=== PATIENT | female | born 1995 | race Caucasian/White ===

== ENCOUNTER 2017-08-21 20:43 | Emergency (ER) | payer OTHER ==
--- NOTE | 2017-08-21 21:01 | EDM.PDOC ---
ED HPI GENERAL MEDICAL PROBLEM - General Chief Complaint: Neurological Problem Stated Complaint: DIZZY Time Seen by Provider: 08/21/17 21:01 Source of Information: Reports: Patient History Limitations: Reports: No Limitations - History of Present Illness INITIAL COMMENTS - FREE TEXT/NARRATIVE: 21-year-old female presents to the ED with complaint of dizziness. From what I can elicit she is experiencing mild vertigo. Started last night about 6:00. No associated headache. Associated mild nausea without any vomiting. This is predated by an upper spine Avila tract which she claims a sinus infection about 3 weeks ago. Not appreciating increased calming ringing or buzzing in either ear. Last period was about 2 weeks ago and was not all that heavy. She has not fallen or hit her head. She is currently on spring. Denies any true facial pain or eye pain. She feels she did eat and drink fairly well today. I did appreciate the symptoms worse with driving in a motor vehicle. Onset: Sudden Onset Date: 08/20/17 Onset Time: 18:00 Duration: Hour(s): Location: Reports: Other Quality: Reports: Other (Vertigo) Severity: Moderate Improves with: Reports: Rest Worsens with: Reports: Movement Context: Denies: Activity, Exercise, Lifting, Sick Contact, Trauma, Other Associated Symptoms: Reports: Nausea/Vomiting. Denies: No Other Symptoms, Confusion, Chest Pain, Cough, cough w sputum, Diaphoresis, Fever/Chills, Headaches, Loss of Appetite, Malaise, Rash, Seizure, Shortness of Breath, Syncope Treatments INTEGRATION CONSULTANT: Reports: Other (see below) - Related Data Allergies Allergy/AdvReac Type Severity Reaction Status Date / Time No Known Allergies Allergy Verified 08/21/17 20:56 Home Meds: Home Meds Amoxicillin/Clavulanate K [Augmentin 500-125 MG] 1 tab PO Q12H #16 tablet [Rx] Loratadine/Pseudoephedrine [Claritin-D 24 Hour Tablet] 1 each PO DAILY #5 tab.er.24h 08/21/17 [Rx] Meclizine [Antivert] 25 mg PO Q8H #15 tab 08/21/17 [Rx] Past Medical History Musculoskeletal History: Reports: Other (See Below) Other Musculoskeletal History: sciolosis - Past Surgical History HEENT Surgical History: Reports: Oral Surgery, Tonsillectomy Social & Family History - Tobacco Use Smoking Status *Q: Never Smoker - Caffeine Use Caffeine Use: Reports: Coffee, Energy Drinks, Soda, Tea - Recreational Drug Use Recreational Drug Use: No - Living Situation & Occupation Living situation: Reports: Single Occupation: Student ED ROS GENERAL - Review of Systems Review Of Systems: See Below Constitutional: Reports: Decreased Appetite (Mildly decreased). Denies: Fever, Chills, Malaise, Weakness, Fatigue, Weight Loss HEENT: Reports: Vertigo, Vision Change (RN last evening.). Denies: Ear Pain ( Feels vision was swimming at times.) Respiratory: Reports: No Symptoms Cardiovascular: Reports: No Symptoms Endocrine: Reports: No Symptoms GI/Abdominal: Reports: Nausea : Reports: No Symptoms (With no vomiting. It's associated with the vertigo symptoms) Musculoskeletal: Reports: No Symptoms Skin: Reports: No Symptoms Neurological: Reports: No Symptoms Psychiatric: Reports: No Symptoms Hematologic/Lymphatic: Reports: No Symptoms Immunologic: Reports: No Symptoms ED EXAM, DIZZINESS - Physical Exam Exam: See Below Exam Limited By: No Limitations General Appearance: Alert, WD/WN, No Apparent Distress, Other (Slightly pallid in color. But she has very fair skinned) Eye Exam: Bilateral Eye: Normal Inspection (Very slight pallor.) Nystagmus: short duration (On right lateral gaze.) Ears: TM Dullness (Into very retracted on the left side. This is compatible with severe eustachian tube dysfunction. Tympanic membrane is normal.) Nose: Other (She is very swollen particularly medial and superior turbinates on the left side with some purulent discharge. No pain on palpation of her maxillary or ethmoid sinuses.) Throat/Mouth: Normal Inspection, Normal Lips, Normal Teeth, Normal Oropharynx Head Exam: Atraumatic, Normocephalic Vertigo: worsens with head to L Neck: Normal Inspection, Supple, Non-Tender, Full Range of Motion. No: Lymphadenopathy (L), Lymphadenopathy (R) Respiratory/Chest: No Respiratory Distress, Lungs Clear, Normal Breath Sounds, No Accessory Muscle Use, Chest Non-Tender Cardiovascular: Normal Peripheral Pulses, Regular Rate, Rhythm, No Edema, No Murmur, No Rub GI/Abdominal: Normal Bowel Sounds, Soft, Non-Tender, No Organomegaly Neurological: Alert, Normal Mood/Affect, Normal Dorsiflexion, CN II-XII Intact, Oriented x 3, Other (Normal rapid alternating movements. Normal finger to nose no pronator drift.). No: Abnormal Finger to Nose Extremities: Normal Inspection, Normal Range of Motion, Non-Tender, No Pedal Edema Psychiatric: Normal Affect, Normal Mood Skin Exam: Warm, Dry, Intact, Normal Color, No Rash Course - Vital Signs Last Recorded V/S: Last Vital Signs Temp 36.9 C 08/21/17 20:55 Pulse 84 08/21/17 20:55 Resp 20 08/21/17 20:55 BP 125/73 08/21/17 20:55 Pulse Ox 100 08/21/17 20:55 Orthostatic Blood Pressure [ 120/69 Standing] Orthostatic Blood Pressure [ 132/91 Sitting] - Orders/Labs/Meds Orders: Active Orders 24 hr Category Date Time Status Orthostatic Vital Signs [RC] ASDIRECTED Care 08/21/17 21:00 Active Labs: Laboratory Tests 08/21/17 08/21/17 Range/Units 21:23 21:23 WBC 7.31 (3.98-10.04) K/mm3 RBC 4.54 (3.98-5.22) M/mm3 Hgb 12.8 (11.2-15.7) gm/L Hct 38.6 (34.1-44.9) % MCV 85.0 (79.4-94.8) fl MCH 28.2 (25.6-32.2) pg MCHC 33.2 (32.2-35.5) g/dl RDW Std Deviation 38.7 (36.4-46.3) fL Plt Count 238 (182-369) K/mm3 MPV 10.2 (9.4-12.3) fl Neutrophils % (Manual) 44 (40-60) % Band Neutrophils % 0 (0-10) % Lymphocytes % (Manual) 47 H (20-40) % Atypical Lymphs % 0 % Monocytes % (Manual) 5 (2-10) % Eosinophils % (Manual) 4 (0.7-5.8) % Basophils % (Manual) 0 L (0.1-1.2) Platelet Estimate Adequate RBC Morph Comment Normal Sodium 140 (136-145) mEq/L Potassium 3.5 (3.5-5.1) mEq/L Chloride 104 (98-107) mEq/L Carbon Dioxide 28 (21-32) mEq/L Anion Gap 11.5 (5-15) BUN 9 (7-18) mg/dL Creatinine 0.7 (0.55-1.02) mg/dL Est Cr Clr Drug Dosing 129.59 mL/min Estimated GFR (MDRD) > 60 (>60) mL/min BUN/Creatinine Ratio 12.9 L (14-18) Glucose 135 H (74-106) mg/dL Calcium 9.0 (8.5-10.1) mg/dL Total Bilirubin 0.5 (0.2-1.0) mg/dL AST 19 (15-37) U/L ALT 29 (14-59) U/L Alkaline Phosphatase 59 (46-116) U/L Total Protein 7.2 (6.4-8.2) g/dl Albumin 4.2 (3.4-5.0) g/dl Globulin 3.0 gm/dL Albumin/Globulin Ratio 1.4 (1-2) TSH 3rd Generation 1.081 (0.516-4.13) uIU/mL Meds: Medications Discontinued Medications Generic Name Dose Route Start Last Admin Trade Name Freq PRN Reason Stop Dose Admin Amoxicillin/Clavulanate Potassium 1 tab 08/22/17 22:37 Augmentin 500 Mg\125 Mg PO 08/22/17 22:38 ONETIME ONE Amoxicillin/Clavulanate Potassium 1 tab 08/21/17 22:49 08/21/17 22:55 Augmentin 500 Mg\125 Mg PO 08/21/17 22:50 1 tab ONETIME ONE Administration Dextrose/Sodium Chloride 1,000 mls @ 999 mls/hr 08/21/17 21:30 08/21/17 21:31 Dextrose 5%-Normal Saline IV 999 mls/hr ASDIRECTED JOSE Administration Meclizine HCl 25 mg 08/21/17 22:37 08/21/17 22:55 Antivert PO 08/21/17 22:38 25 mg ONETIME ONE Administration Metoclopramide HCl 7.5 mg 08/21/17 21:23 08/21/17 21:31 Reglan IVPUSH 08/21/17 21:24 7.5 mg ONETIME ONE Administration - Radiology Interpretation Free Text/Narrative:: 21-year-old female presents the ED with chief complaint of dizziness. On sorting this out this is mild vertigo. Clinically she has evidence of a severely retracted left tympanic membrane due to eustachian tube dysfunction. Had sinus infection about 3 weeks ago but thought she was getting better. The nose remains very occluded on the left side walking off the eustachian tube. She has very minimal nystagmus on right lateral gaze. The rest of her neuro exam is normal. Plan routine labs to be done. She is not orthostatic. She has a little pallid. Question whether she may be anemic. Plan IV D5 normal saline at open. Will give Reglan 7.5 mg IV and then 25 mg of meclizine and about 45 minutes to stabilize the balance mechanism overnight. Will likely require antibiotic therapy and decongestant. - Re-Assessments/Exams Free Text/Narrative Re-Assessment/Exam: 08/21/17: 22:00: Nausea is gone. Doesn't feel as dizzy and doesn't feel like her vision is a swimmy as it was. 08/21/17 22:35 Labs are back. White count is 7.31 with 44% neutrophils and 47% lymphocytes suggesting a viral infection. Hemoglobin is 12.8 platelet count is normal at 238,000. Chemistry shows low sodium at 140 with potassium low-normal at 3.5. Chloride 104 bicarbonate 20. Anion gap is normal 11.5 BUN is 9 with a creatinine of 0.7. Glucose is 135 calcium is 9.0 liver function normal. TSH is also normal at 1.081. Plan patient clinically has a eustachian tube dysfunction on the left side continuing to current vertigo symptoms. She is improved after receiving Reglan IV. I will not give her Antivert 25 mg orally to get her through the night. The plan will used to be to use Antivert 25 mg every 8 hours for the next few days I'm going to place her on Augmentin tablets 500 mg twice a day for the next 8 days to help clear up ear infection and sinus congestion. Also Claritin-D 24- hour release 1 tablet once daily every morning for the next 5 days. Departure - Departure Time of Disposition: 22:38 Disposition: Home, Self-Care 01 Condition: Fair Clinical Impression: Benign paroxysmal positional vertigo Qualifiers: Laterality: left Qualified Code(s): H81.12 - Benign paroxysmal vertigo, left ear Left serous otitis media Qualifiers: Chronicity: acute Recurrence: not specified as recurrent Qualified Code(s): H65.02 - Acute serous otitis media, left ear Eustachian tube dysfunction Qualifiers: Laterality: left Qualified Code(s): H69.82 - Other specified disorders of Eustachian tube, left ear - Discharge Information Prescriptions: Amoxicillin/Clavulanate K [Augmentin 500-125 MG] 1 tab PO Q12H #16 tablet Loratadine/Pseudoephedrine [Claritin-D 24 Hour Tablet] 1 each PO DAILY #5 tab.er.24h Meclizine [Antivert] 25 mg PO Q8H #15 tab Instructions: Eustachian Tube Dysfunction, Otitis Media, Adult, [id number], Benign Positional Vertigo Referrals: PCP,None [Primary Care Provider] - Forms: ED Department Discharge Additional Instructions: Evaluation the emergency room tonight in regards to reported symptoms of feeling dizzy with associated nausea. By history you're experiencing vertigo which is a sense of being off balance. This is occurred because of dysfunction of the left foot vestibular apparatus in the left middle ear. After eardrum was found to be severely retracted and fluid is inside the middle ear cavity contributing to current illness. Also the left side of her nose is completely occluded blocking off the eustachian tube that drains the left ear again contributing to current problem. Lab work done in the ED today is normal. You' re treated with Reglan intravenously to try and stabilize the balance mechanism. You're also given meclizine 25 mg orally before time of discharge. Treatment is Augmentin 500 mg twice daily for the next 8 days to clear up infection. This is involving the middle ear cavity as well as the sinuses on the left side. PT is Claritin-D 24 hours once daily every morning for the next 5 days to help open up the eustachian tube and promote drainage of the left basilar cavity. Once it was occurs the vertigo symptoms will go away. In the meantime may use meclizine 25 mg every 8 hours with the next tablet due at 7 tomorrow morning for vertigo symptoms and use every 8 hours as needed until vertigo symptoms are gone for 24 hours. I would anticipate marked improvement over the next 24-72 hours. - My Orders Last 24 Hours: My Active Orders 08/21/17 21:00 Orthostatic Vital Signs [RC] ASDIRECTED - Assessment/Plan Last 24 Hours: My Active Orders 08/21/17 21:00 Orthostatic Vital Signs [RC] ASDIRECTED
[2017-08-21] MEDS ORDERED: Metoclopramide 10 MG/2 ML SDV IVPUSH ONE (21:23)
[2017-08-21] MEDS ORDERED: Dextrose 5%-0.9% NaCl 1,000 ML IV SCH (21:30)
[2017-08-21] MEDS ORDERED: Meclizine 12.5 MG Tab PO ONE (22:37)
[2017-08-21] MEDS ORDERED: Amoxicillin/Clavulanate K 500-125 MG Tab PO ONE (22:49)
[2017-08-22] MEDS ORDERED: Amoxicillin/Clavulanate K 500-125 MG Tab PO ONE (22:37)
== END 2017-08-21 22:59 | disposition home or self-care (01) ==
LOC: JD.ED 20:43
DX: H81.12 Benign paroxysmal vertigo, left ear (principal); H65.02 Acute serous otitis media, left ear; H69.82 Other specified disorders of Eustachian tube, left ear; Z79.899 Other long term (current) drug therapy
CPT/HCPCS: 36415; 80053; 84443; 85025; 96361; 96374; 99284; A9270; J2765; J7042

== ENCOUNTER 2017-09-27 17:07 | Emergency (ER) | payer OTHER ==
--- NOTE | 2017-09-27 18:04 | EDM.PDOC ---
ED HPI GENERAL MEDICAL PROBLEM - General Chief Complaint: ENT Problem Stated Complaint: BLOODY NOSE Time Seen by Provider: 09/27/17 17:59 Source of Information: Reports: Patient History Limitations: Reports: No Limitations - History of Present Illness INITIAL COMMENTS - FREE TEXT/NARRATIVE: 22-year-old female presents for evaluation and treatment of epistaxis. Upon my interview the patient's epistaxis is controlled. She states that was present for about 45 minutes. She reports that over the last 2-3 weeks she has been having more nosebleeds and normal. She states has been she's had about 10 in the last 2-3 weeks. States he normally last 5-10 minutes and resolved with pressure. She began concerned tonight when she could not control this nosebleed. Reports the epistaxis started in the left nare the also involve the right nare she did have a fair amount of drainage down her throat. She states that she had some blood drainage from the left medial canthus. She currently is complaining of a slight headache. No dizziness, lightheadedness, fevers, chills or any easy bruising. patient does not have a primary care provider. She is currently going to college and is from [place]. - Related Data Allergies Allergy/AdvReac Type Severity Reaction Status Date / Time No Known Allergies Allergy Verified 09/27/17 17:17 Home Meds: Home Meds . [No Known Home Meds] 09/27/17 [History] Past Medical History Musculoskeletal History: Reports: Other (See Below) Other Musculoskeletal History: sciolosis - Past Surgical History HEENT Surgical History: Reports: Oral Surgery, Tonsillectomy Social & Family History - Tobacco Use Smoking Status *Q: Never Smoker - Caffeine Use Caffeine Use: Reports: None - Recreational Drug Use Recreational Drug Use: No - Living Situation & Occupation Living situation: Reports: Single Occupation: Student ED ROS ENT - Review of Systems Review Of Systems: See Below Constitutional: Denies: Fever, Chills HEENT: Reports: Nosebleed GI/Abdominal: Denies: Nausea, Vomiting Neurological: Denies: Dizziness Hematologic/Lymphatic: Denies: Easy Bruising ED EXAM, ENT - Physical Exam Exam: See Below Exam Limited By: No Limitations General Appearance: Alert, WD/WN, No Apparent Distress Ears: Normal External Exam, Normal Canal, Hearing Grossly Normal, Normal TMs Nose: Normal Inspection, Dried Blood (bilateral nares, clot in left nare) Mouth/Throat: Normal Inspection, Normal Gums, Normal Teeth, Other (blood in the posterior oropharynx) Neck: Normal Inspection Respiratory/Chest: No Respiratory Distress, Lungs Clear, Normal Breath Sounds Cardiovascular: Normal Peripheral Pulses, Regular Rate, Rhythm, No Murmur Neurological: Alert, Oriented, Normal Cognition Psychiatric: Normal Affect, Normal Mood Skin: Warm, Dry, Normal Color Course - Vital Signs Last Recorded V/S: Last Vital Signs Temp 36.6 C 09/27/17 17:12 Pulse 109 H 09/27/17 17:12 Resp 18 09/27/17 17:12 BP 138/73 09/27/17 17:12 Pulse Ox 100 09/27/17 17:12 - Re-Assessments/Exams Free Text/Narrative Re-Assessment/Exam: 09/27/17 17:54 Recent increase in epistaxis is likely due to the weather changes. Recommendations given. I did offer to do lab work, check clotting factors and CBC. She declined. Informed her if this is to the problem she should see family medicine for more workup. She could also consider ENT if this continues to be problematic for her for cautery. Discharge instructions as documented. Departure - Departure Time of Disposition: 17:59 Disposition: Home, Self-Care 01 Condition: Good Clinical Impression: Epistaxis - Discharge Information Instructions: Nosebleed, Adult, [id number] Referrals: PCP,None [Primary Care Provider] - Yamila Salcedo PA-C [Physician [employer]] - Forms: ED Department Discharge Additional Instructions: Recommend to prevent bloody noses: humidity; may also use a small amount of Vaseline, Neosporin or bacitracin on a Q-tip and put it right inside of an nare. For the next 24 hours do not attempt blow your nose or have any trauma to the nose to prevent clot disruption. If you continue have bloody notices consider seeing family medicine for a workup. Consider having your platelets and clotting factors checked. Here in [place] recommend Danii Barba or Dr. Almendarez at the [facility], [place], operated by [facility]. Call [phone] to schedule with one of these providers. If you continue have bloody noses and would like to explore cautery recommend ear, nose and throat [place]. Recommend Dr. Escobedo at [facility] sinus, ear and allergy. Call [phone] to schedule with him. Please return to the ER if your symptoms change or worsen.
== END 2017-09-27 18:10 | disposition home or self-care (01) ==
LOC: JD.ED 17:07
DX: R04.0 Epistaxis (principal)
CPT/HCPCS: 99283